=== PATIENT | female | born 1995 | race Caucasian/White ===

== ENCOUNTER 2018-07-03 09:00 | Emergency (ER) | payer MEDICAID ==
[~2018-07-03] VITALS: Ht 157.5 cm; Wt 54.5 kg
[2018-07-03] MEDS ORDERED: LORazepam 2 MG/ML VIAL IVP ONE (09:15)
[2018-07-03] MEDS ORDERED: KETOROLAC TROMETHAMINE 30 MG/ML VIAL IVP ONE (09:15)
[2018-07-03] MEDS ORDERED: ONDANSETRON HCL 4 MG/2 ML VIAL IVP ONE (09:15)
[2018-07-03] MEDS ORDERED: SODIUM CHLORIDE 0.9% 1,000 ML IV ONE ×2 (09:15→13:45)
[2018-07-03 09:26] LABS: BASOPHILS % (AUTO) 0.3 % (0.0-2.0); EOSINOPHILS % (AUTO) 0.1 % (1.0-6.0); HEMATOCRIT 36.3 % (36-46); HEMOGLOBIN 12.7 g/dL (12.0-16.0); LYMPHOCYTES # (AUTO) 1.5 K/uL (1.0-4.8); LYMPHOCYTES % (AUTO) 13.4 % (22.0-44.0); MEAN CORPUSCULAR HEMOGLOBIN 28.5 pg (26.0-34.0); MEAN CORPUSCULAR HGB CONC 34.8 G/dL (31.0-37.0); MEAN CORPUSCULAR VOLUME 82 fL (80-100); MONOCYTES # (AUTO) 0.3 K/uL (0.1-1.0); MONOCYTES % (AUTO) 2.4 % (2.0-9.0); NEUTROPHILS # (AUTO) 9.6 K/uL (1.8-7.7); NEUTROPHILS % (AUTO) 83.8 % (40.0-70.0); PLATELET COUNT (AUTO) 435 K/uL (150-450); RED BLOOD CELL COUNT(AUTO) 4.43 MIL/uL (4.00-5.20); RED CELL DISTRIBUTION WIDTH 17.1 % (11.5-14.5)
[2018-07-03 09:39] LABS: ANION GAP 8 mmol/L (8-16); CARBON DIOXIDE 29 mmol/L (22-29); CHLORIDE 101 mmol/L (98-107); CREATININE 0.71 mg/dL (0.60-1.30); GLOMERULAR FILTR. RATE CALC > 60 mL/min (>60); GLUCOSE,RANDOM 120 mg/dL (70-110); POTASSIUM 3.5 mmol/L (3.5-5.1); SODIUM SERUM 138 mmol/L (136-145); UREA NITROGEN, BLOOD 5 mg/dL (7-18)
[2018-07-03 10:07] LABS: ALANINE AMINOTRANSFERASE 21 U/L (12-78); ALBUMIN 3.7 g/dL (3.4-5.0); ALKALINE PHOSPHATASE 46 U/L (46-116); ASPARTATE AMINOTRANSFERASE 16 U/L (15-37); BILIRUBIN,TOTAL 0.3 mg/dL (0.1-1.0); HCG,QUANTITATIVE 66862 mIU/mL (0-6); LIPASE 99 U/L (73-393); TOTAL PROTEIN, SERUM 7.4 g/dL (6.4-8.2)
[2018-07-03] MEDS ORDERED: ACETAMINOPHEN 325 MG TABLET PO ONE (11:15)
[2018-07-03 13:23] LABS: APPEARANCE,URINE TURBID (CLEAR); BILIRUBIN,URINE NEGATIVE (NEGATIVE); GLUCOSE, URINE (UA) NEGATIVE (NEGATIVE); KETONES,URINE 15 mg/dL (NEGATIVE); LEUKOCYTE ESTERASE ,URINE MODERATE (NEGATIVE); NITRATE,URINE NEGATIVE (NEGATIVE); OCCULT BLOOD,URINE MODERATE (NEGATIVE); PH,URINE 7.5 (5.0-8.0); PROTEIN,URINE SEE CONFIRM (NEGATIVE); UROBILINOGEN,URINE 0.2 mg/dL (<=1.0)
[2018-07-03 13:36] LABS: BACTERIA,URINE Moderate /HPF (None Seen); SQUAMOUS EPITHELIAL CELL,UR Moderate /LPF (None Seen); SULFOSALICYLIC ACID,URINE 2+ (Negative)
[2018-07-03 13:54] LABS: AMPHET/METH SCREEN,URINE NEGATIVE (NEGATIVE); BARBITURATE SCREEN, URINE NEGATIVE (NEGATIVE); BENZODIAZEPINES SCREEN,URINE NEGATIVE (NEGATIVE); CANNABINOID SCREEN,URINE POSITIVE (NEGATIVE); COCAINE SCREEN,URINE NEGATIVE (NEGATIVE); METHADONE SCREEN, URINE NEGATIVE (NEGATIVE); OPIATE SCREEN,URINE NEGATIVE (NEGATIVE)
[2018-07-03 13:55] LABS: PHENCYCLIDINE SCREEN,URINE NEGATIVE (NEGATIVE)
[2018-07-03 15:53] VITALS: BP 110/60
== END 2018-07-03 16:00 | disposition home or self-care (01) ==
LOC: EMS 09:00
DX: O23.41 Unspecified infection of urinary tract in pregnancy, first trimester (principal); O21.9 Vomiting of pregnancy, unspecified; K59.00 Constipation, unspecified; Z3A.11 11 weeks gestation of pregnancy
CPT/HCPCS: 36415; 76801; 76817; 80053; 80307; 81001; 83690; 84702; 85025; 87086; 96361; 96374; 96375; 99285; J1885; J2060; J2405; J7030

== ENCOUNTER 2020-04-28 23:53 | Inpatient (IN) | payer MEDICAID ==
[~2020-04-28] VITALS: Ht 167.6 cm; Wt 58.5 kg
[2020-04-29] MEDS ORDERED: HALOPERIDOL 5 MG TABLET PO PRN (01:30)
[2020-04-29] MEDS ORDERED: ZOLPIDEM TARTRATE 10 MG TABLET PO PRN (01:30)
[2020-04-29 02:24] VITALS: BP 113/87
[2020-04-29] MEDS: CEPHALEXIN MONOHYDRATE 500 MG CAPSULE PO SCH ×2 (09:12→16:49)
[2020-04-29] MEDS ORDERED: DOCUSATE SODIUM 100 MG CAPSULE PO PRN (09:30)
[2020-04-29] MEDS ORDERED: GuaiFENesin/D-METHORPHAN [SUGAR-FREE] 200-20MG/10 ML SYRUP UDCUP PO PRN (09:30)
[2020-04-29] MEDS ORDERED: IBUPROFEN 400 MG TABLET PO PRN (09:30)
[2020-04-29] MEDS ORDERED: ONDANSETRON HCL 4 MG TABLET PO PRN (09:30)
[2020-04-29] MEDS ORDERED: NICOTINE 14 MG/24 HOUR PATCH TD PRN (09:30)
[2020-04-29] MEDS ORDERED: CloNIDine HCL 0.1 MG TABLET PO PRN (09:30)
[2020-04-29] MEDS ORDERED: ACETAMINOPHEN 325 MG TABLET PO PRN (09:30)
[2020-04-29] MEDS ORDERED: PETROLATUM,WHITE 28 GM JELLY TP PRN (09:30)
[2020-04-29] MEDS ORDERED: LOPERAMIDE HCL 2 MG CAPSULE PO PRN (09:30)
[2020-04-29] MEDS ORDERED: ALBUTEROL SULFATE HFA 90 MCG/PUFF 8 GM INHALER IH PRN (09:30)
[2020-04-29] MEDS ORDERED: MAGNESIUM HYDROXIDE SUSPENSION 30 ML UDCUP PO PRN (09:30)
[2020-04-29] MEDS ORDERED: MAG HYDROX/AL HYDROX/SIMETH ES 30 ML SUSPENSION UDCUP PO PRN (09:30)
[2020-04-29] MEDS: SERTRALINE HCL 50 MG TABLET PO SCH (11:15)
[2020-04-29 16:24] VITALS: BP 110/62
[2020-04-29] MEDS: OLANZapine 5 MG TABLET PO SCH (20:23)
[2020-04-30 05:26] VITALS: BP 104/73
[2020-04-30] MEDS: SERTRALINE HCL 50 MG TABLET PO SCH (08:41)
[2020-04-30] MEDS: CEPHALEXIN MONOHYDRATE 500 MG CAPSULE PO SCH ×2 (08:41→16:11)
[2020-04-30 08:43] VITALS: BP 110/76
[2020-04-30] MEDS: LORazepam 2 MG TABLET PO PRN (16:11)
[2020-04-30 16:52] VITALS: BP 103/60
[2020-04-30] MEDS: OLANZapine 5 MG TABLET PO SCH (20:22)
[2020-05-01 04:47] VITALS: BP 110/72
[2020-05-01 08:24] VITALS: BP 116/63
[2020-05-01] MEDS: CEPHALEXIN MONOHYDRATE 500 MG CAPSULE PO SCH ×2 (08:49→16:54)
[2020-05-01] MEDS: SERTRALINE HCL 50 MG TABLET PO SCH (08:49)
[2020-05-01 16:13] VITALS: BP 110/55
[2020-05-01] MEDS: MUPIROCIN CALCIUM 2% 22 GM OINTMENT NASAL SCH (16:53)
[2020-05-01] MEDS: LORazepam 2 MG TABLET PO PRN (17:14)
[2020-05-01] MEDS: OLANZapine 5 MG TABLET PO SCH (20:15)
[2020-05-02 00:36] VITALS: BP 106/68
[2020-05-02 08:14] VITALS: BP 114/66
[2020-05-02] MEDS: CEPHALEXIN MONOHYDRATE 500 MG CAPSULE PO SCH ×2 (09:26→16:32)
[2020-05-02] MEDS: MUPIROCIN CALCIUM 2% 22 GM OINTMENT NASAL SCH ×2 (09:26→16:32)
[2020-05-02] MEDS: SERTRALINE HCL 50 MG TABLET PO SCH (09:26)
[2020-05-02] MEDS: LORazepam 2 MG TABLET PO PRN ×2 (10:17→17:47)
[2020-05-02 17:45] VITALS: BP 126/77
[2020-05-02] MEDS: OLANZapine 5 MG TABLET PO SCH (20:38)
[2020-05-03 00:31] VITALS: BP 122/79
[2020-05-03 08:16] VITALS: BP 106/71
[2020-05-03] MEDS: LORazepam 2 MG TABLET PO PRN (09:21)
[2020-05-03] MEDS: CEPHALEXIN MONOHYDRATE 500 MG CAPSULE PO SCH (09:21)
[2020-05-03] MEDS: SERTRALINE HCL 50 MG TABLET PO SCH (09:21)
[2020-05-03] MEDS: MUPIROCIN CALCIUM 2% 22 GM OINTMENT NASAL SCH (09:21)
[2020-05-03] MEDS ORDERED: SERT50TA12 PO (11:47)
[2020-05-03] MEDS ORDERED: OLAN5TAB27 PO (11:47)
== END 2020-05-03 14:30 | disposition home or self-care (01) | DRG 885 ==
LOC: B3A 04-29 02:08
DX: F25.1 Schizoaffective disorder, depressive type (principal); R45.851 Suicidal ideations; N39.0 Urinary tract infection, site not specified; Z59.0 Homelessness; Z79.899 Other long term (current) drug therapy; Z91.5 Personal history of self-harm; F41.1 Generalized anxiety disorder; F15.10 Other stimulant abuse, uncomplicated; F12.10 Cannabis abuse, uncomplicated; K59.00 Constipation, unspecified
CPT/HCPCS: 87081; Z7610

== ENCOUNTER 2020-06-01 01:41 | Emergency (ER) | payer MEDICAID ==
[~2020-06-01] VITALS: Ht 157.5 cm; Wt 54.5 kg
[~2020-06-01 01:41] MED LIST: OLAN5TAB27 PO; SERT50TA12 PO
[2020-06-01] MEDS ORDERED: DIVA-85 PO (02:12)
[2020-06-01] MEDS ORDERED: QUET25TA PO (02:12)
[2020-06-01] MEDS ORDERED: ZOLP-280 PO (02:12)
[2020-06-01 02:15] LABS: BASOPHILS % (AUTO) 0.8 % (0.0-2.0); EOSINOPHILS % (AUTO) 1.6 % (1.0-6.0); HEMATOCRIT 34.2 % (36-46); HEMOGLOBIN 11.2 g/dL (12.0-16.0); LYMPHOCYTES # (AUTO) 2.9 K/uL (1.0-4.8); LYMPHOCYTES % (AUTO) 39.7 % (22.0-44.0); MEAN CORPUSCULAR HEMOGLOBIN 26.3 pg (26.0-34.0); MEAN CORPUSCULAR HGB CONC 32.8 G/dL (31.0-37.0); MEAN CORPUSCULAR VOLUME 80 fL (80-100); MONOCYTES # (AUTO) 0.5 K/uL (0.1-1.0); MONOCYTES % (AUTO) 7.3 % (2.0-9.0); NEUTROPHILS # (AUTO) 3.6 K/uL (1.8-7.7); NEUTROPHILS % (AUTO) 50.6 % (40.0-70.0); PLATELET COUNT (AUTO) 332 K/uL (150-450); RED BLOOD CELL COUNT(AUTO) 4.27 MIL/uL (4.00-5.20); RED CELL DISTRIBUTION WIDTH 19.4 % (11.5-14.5)
[2020-06-01 02:22] LABS: ANION GAP 6 mmol/L (8-16); CALCIUM, TOTAL 8.9 mg/dL (8.8-10.5); CARBON DIOXIDE 29 mmol/L (22-29); CHLORIDE 103 mmol/L (98-107); CREATININE 0.78 mg/dL (0.60-1.30); GLOMERULAR FILTR. RATE CALC > 60 mL/min (>60); GLUCOSE,RANDOM 96 mg/dL (70-110); SODIUM SERUM 138 mmol/L (136-145); UREA NITROGEN, BLOOD 6 mg/dL (7-18)
[2020-06-01] MEDS ORDERED: LORazepam 2 MG TABLET PO ONE (02:30)
[2020-06-01 02:33] LABS: ALANINE AMINOTRANSFERASE 21 U/L (12-78); ALBUMIN 3.8 g/dL (3.4-5.0); ALKALINE PHOSPHATASE 41 U/L (46-116); ASPARTATE AMINOTRANSFERASE 17 U/L (15-37); BILIRUBIN,TOTAL 0.3 mg/dL (0.1-1.0); HCG,QUANTITATIVE 1 mIU/mL (0-6); TOTAL PROTEIN, SERUM 6.8 g/dL (6.4-8.2)
[2020-06-01] MEDS ORDERED: POTASSIUM CHLORIDE 20 MEQ ER TABLET PO ONE (05:00)
[2020-06-01 09:00] VITALS: BP 108/70
== END 2020-06-01 10:04 | disposition home or self-care (01) ==
LOC: EMS 01:42
DX: F20.9 Schizophrenia, unspecified (principal); F12.90 Cannabis use, unspecified, uncomplicated; F14.90 Cocaine use, unspecified, uncomplicated; Z79.899 Other long term (current) drug therapy
CPT/HCPCS: 36415; 80053; 84702; 85025; 99285; G0480

== ENCOUNTER 2021-07-27 14:33 | Emergency (ER) | payer MEDICAID ==
[~2021-07-27] VITALS: Ht 157.5 cm; Wt 55.0 kg
[~2021-07-27 14:33] MED LIST changes: +DIVA-85 PO; -OLAN5TAB27 PO; +QUET25TA PO; -SERT50TA12 PO; +ZOLP-280 PO
[2021-07-27] MEDS ORDERED: LORA-999 PO (14:43)
[2021-07-27] MEDS ORDERED: LORazepam 1 MG TABLET PO ONE (15:30)
[2021-07-27 15:38] LABS: BASOPHILS % (AUTO) 0.9 % (0.0-2.0); EOSINOPHILS % (AUTO) 1.3 % (1.0-6.0); HEMATOCRIT 38.4 % (36-46); HEMOGLOBIN 12.3 g/dL (12.0-16.0); LYMPHOCYTES # (AUTO) 2.5 K/uL (1.0-4.8); LYMPHOCYTES % (AUTO) 31.9 % (22.0-44.0); MEAN CORPUSCULAR HEMOGLOBIN 26.6 pg (26.0-34.0); MEAN CORPUSCULAR HGB CONC 32.1 G/dL (31.0-37.0); MEAN CORPUSCULAR VOLUME 83 fL (80-100); MONOCYTES # (AUTO) 0.5 K/uL (0.1-1.0); MONOCYTES % (AUTO) 6.1 % (2.0-9.0); NEUTROPHILS # (AUTO) 4.7 K/uL (1.8-7.7); NEUTROPHILS % (AUTO) 59.8 % (40.0-70.0); PLATELET COUNT (AUTO) 417 K/uL (150-450); RED BLOOD CELL COUNT(AUTO) 4.63 MIL/uL (4.00-5.20)
[2021-07-27 15:47] LABS: ANION GAP 4 mmol/L (8-16); CARBON DIOXIDE 34 mmol/L (22-29); CHLORIDE 104 mmol/L (98-107); GLOMERULAR FILTR. RATE CALC > 60 mL/min (>60); GLUCOSE,RANDOM 78 mg/dL (70-110); POTASSIUM 4.5 mmol/L (3.5-5.1); SODIUM SERUM 142 mmol/L (136-145); UREA NITROGEN, BLOOD 12 mg/dL (7-18)
[2021-07-27 15:54] LABS: ALANINE AMINOTRANSFERASE 22 U/L (12-78); ALBUMIN 3.6 g/dL (3.4-5.0); ALKALINE PHOSPHATASE 60 U/L (46-116); ASPARTATE AMINOTRANSFERASE 12 U/L (15-37); BILIRUBIN,TOTAL 0.1 mg/dL (0.1-1.0); TOTAL PROTEIN, SERUM 6.7 g/dL (6.4-8.2)
[2021-07-27 16:28] LABS: COVID AG,FIA SOURCE NASOPHARYNGEAL
[2021-07-27 16:38] LABS: AMPHET/METH SCREEN,URINE NEGATIVE (NEGATIVE); BARBITURATE SCREEN, URINE NEGATIVE (NEGATIVE); BENZODIAZEPINES SCREEN,URINE NEGATIVE (NEGATIVE); CANNABINOID SCREEN,URINE POSITIVE (NEGATIVE); COCAINE SCREEN,URINE NEGATIVE (NEGATIVE); METHADONE SCREEN, URINE NEGATIVE (NEGATIVE); OPIATE SCREEN,URINE NEGATIVE (NEGATIVE)
[2021-07-27 16:45] LABS: PHENCYCLIDINE SCREEN,URINE NEGATIVE (NEGATIVE)
[2021-07-27 16:52] VITALS: BP 108/68
== END 2021-07-27 17:29 | disposition home or self-care (01) ==
LOC: EMS 16:12
DX: F25.9 Schizoaffective disorder, unspecified (principal); Z20.822 Contact with and (suspected) exposure to COVID-19
CPT/HCPCS: 36415; 80053; 80307; 84703; 85025; 87426; 99284; G0480

== ENCOUNTER 2021-07-30 11:27 | Emergency (ER) | payer MEDICAID ==
[~2021-07-30] VITALS: Ht 157.5 cm; Wt 55.0 kg
[~2021-07-30 11:27] MED LIST changes: +LORA-999 PO
[2021-07-30 11:46] VITALS: BP 99/59
[2021-07-30] MEDS ORDERED: SODIUM CHLORIDE 0.9% 1,000 ML IV ONE (12:15)
[2021-07-30 12:29] LABS: BASOPHILS % (AUTO) 0.3 % (0.0-2.0); EOSINOPHILS % (AUTO) 1.4 % (1.0-6.0); HEMATOCRIT 33.8 % (36-46); LYMPHOCYTES # (AUTO) 2.2 K/uL (1.0-4.8); LYMPHOCYTES % (AUTO) 27.6 % (22.0-44.0); MEAN CORPUSCULAR HGB CONC 32.5 G/dL (31.0-37.0); MEAN CORPUSCULAR VOLUME 83 fL (80-100); MONOCYTES # (AUTO) 0.4 K/uL (0.1-1.0); MONOCYTES % (AUTO) 5.3 % (2.0-9.0); NEUTROPHILS # (AUTO) 5.1 K/uL (1.8-7.7); NEUTROPHILS % (AUTO) 65.4 % (40.0-70.0); PLATELET COUNT (AUTO) 336 K/uL (150-450); RED BLOOD CELL COUNT(AUTO) 4.07 MIL/uL (4.00-5.20); RED CELL DISTRIBUTION WIDTH 18.4 % (11.5-14.5)
[2021-07-30 12:40] LABS: ANION GAP 2 mmol/L (8-16); CALCIUM, TOTAL 8.3 mg/dL (8.8-10.5); CARBON DIOXIDE 29 mmol/L (22-29); CHLORIDE 105 mmol/L (98-107); GLOMERULAR FILTR. RATE CALC > 60 mL/min (>60); GLUCOSE,RANDOM 92 mg/dL (70-110); POTASSIUM 4.6 mmol/L (3.5-5.1); SODIUM SERUM 136 mmol/L (136-145); UREA NITROGEN, BLOOD 10 mg/dL (7-18)
[2021-07-30 13:02] LABS: ALANINE AMINOTRANSFERASE 22 U/L (12-78); ALBUMIN 3.1 g/dL (3.4-5.0); ALKALINE PHOSPHATASE 51 U/L (46-116); ASPARTATE AMINOTRANSFERASE 13 U/L (15-37); BILIRUBIN,TOTAL 0.1 mg/dL (0.1-1.0); HCG,QUANTITATIVE 1 mIU/mL (0-6); TOTAL PROTEIN, SERUM 6.1 g/dL (6.4-8.2); VALPROIC ACID 42 mcg/mL (50-100)
== END 2021-07-30 14:18 | disposition home or self-care (01) ==
LOC: EMS 11:31
DX: R55 Syncope and collapse (principal)
CPT/HCPCS: 80053; 80164; 84484; 84702; 85025; 93005; 99284

== ENCOUNTER 2022-01-03 02:39 | Inpatient (IN) | payer MEDICAID ==
[~2022-01-03] VITALS: Ht 154.9 cm; Wt 59.0 kg
[2022-01-03] MEDS ORDERED: ZOLPIDEM TARTRATE 10 MG TABLET PO PRN (08:15)
[2022-01-03] MEDS ORDERED: DiphenhydrAMINE HCL 50 MG/ML VIAL IM ONE (14:00)
[2022-01-03] MEDS ORDERED: LORazepam 2 MG/ML VIAL IM ONE (14:00)
[2022-01-03] MEDS ORDERED: HALOPERIDOL LACTATE 5 MG/ML VIAL IM ONE (14:00)
[2022-01-03] MEDS: DIVALPROEX SODIUM 500 MG DR TABLET PO SCH (20:16)
[2022-01-03] MEDS: LITHIUM CARBONATE 300 MG CAPSULE PO SCH (20:16)
[2022-01-03] MEDS: OLANZapine 7.5 MG TABLET PO SCH (20:16)
[2022-01-04] MEDS: DIVALPROEX SODIUM 500 MG DR TABLET PO SCH ×2 (08:32→20:17)
[2022-01-04] MEDS: LITHIUM CARBONATE 300 MG CAPSULE PO SCH ×2 (08:32→20:17)
[2022-01-04] MEDS ORDERED: MAG HYDROX/AL HYDROX/SIMETH ES 30 ML SUSPENSION UDCUP PO PRN (09:00)
[2022-01-04] MEDS ORDERED: CloNIDine HCL 0.1 MG TABLET PO PRN (09:00)
[2022-01-04] MEDS ORDERED: ALBUTEROL SULFATE HFA 90 MCG/PUFF 8 GM INHALER IH PRN (09:00)
[2022-01-04] MEDS ORDERED: PETROLATUM,WHITE 28 GM JELLY TP PRN (09:00)
[2022-01-04] MEDS ORDERED: LOPERAMIDE HCL 2 MG CAPSULE PO PRN (09:00)
[2022-01-04] MEDS ORDERED: MAGNESIUM HYDROXIDE SUSPENSION 30 ML UDCUP PO PRN (09:00)
[2022-01-04] MEDS ORDERED: OMEPRAZOLE 20 MG CAPSULE PO PRN (09:00)
[2022-01-04] MEDS ORDERED: ACETAMINOPHEN 325 MG TABLET PO PRN (09:00)
[2022-01-04] MEDS ORDERED: BENZOCAINE/MENTHOL LOZENGE PO PRN (09:00)
[2022-01-04] MEDS ORDERED: IBUPROFEN 600 MG TABLET PO PRN (09:00)
[2022-01-04] MEDS ORDERED: BACITRACIN 28 GM OINTMENT TP PRN (09:00)
[2022-01-04] MEDS ORDERED: ONDANSETRON HCL 4 MG TABLET PO PRN (09:00)
[2022-01-04] MEDS ORDERED: DOCUSATE SODIUM 100 MG CAPSULE PO PRN (09:00)
[2022-01-04] MEDS: OLANZapine 7.5 MG TABLET PO SCH (20:17)
[2022-01-05] MEDS: LITHIUM CARBONATE 300 MG CAPSULE PO SCH ×2 (08:49→20:17)
[2022-01-05] MEDS: DIVALPROEX SODIUM 500 MG DR TABLET PO SCH ×2 (08:49→20:17)
[2022-01-05] MEDS: HALOPERIDOL 5 MG TABLET PO PRN (09:29)
[2022-01-05] MEDS: LORazepam 2 MG TABLET PO PRN ×2 (09:29→16:10)
[2022-01-05] MEDS: OLANZapine 7.5 MG TABLET PO SCH (20:17)
[2022-01-06] MEDS: DIVALPROEX SODIUM 500 MG DR TABLET PO SCH ×2 (08:19→21:00)
[2022-01-06] MEDS: LORazepam 2 MG TABLET PO PRN ×2 (08:19→17:30)
[2022-01-06] MEDS: LITHIUM CARBONATE 300 MG CAPSULE PO SCH ×2 (08:20→21:00)
[2022-01-06] MEDS: HALOPERIDOL 5 MG TABLET PO PRN (09:09)
[2022-01-06] MEDS ORDERED: LORazepam 2 MG/ML VIAL IM ONE (12:45)
[2022-01-06] MEDS ORDERED: HALOPERIDOL LACTATE 5 MG/ML VIAL IM ONE (12:45)
[2022-01-06] MEDS ORDERED: LORazepam 2 MG/ML VIAL ONE (12:45)
[2022-01-06] MEDS ORDERED: HALOPERIDOL LACTATE 5 MG/ML VIAL ONE (12:45)
[2022-01-06 17:23] VITALS: BP 109/76
[2022-01-06] MEDS ORDERED: DiphenhydrAMINE HCL 50 MG/ML VIAL ONE (18:10)
[2022-01-06] MEDS ORDERED: DiphenhydrAMINE HCL 50 MG/ML VIAL IM ONE (18:30)
[2022-01-06] MEDS: OLANZapine 7.5 MG TABLET PO SCH (21:00)
[2022-01-07 01:17] VITALS: BP 106/72
[2022-01-07] MEDS: LORazepam 2 MG TABLET PO PRN ×3 (08:38→18:33)
[2022-01-07] MEDS: DIVALPROEX SODIUM 500 MG DR TABLET PO SCH ×2 (08:38→22:42)
[2022-01-07] MEDS: LITHIUM CARBONATE 300 MG CAPSULE PO SCH ×2 (08:39→22:42)
[2022-01-07] MEDS: HALOPERIDOL 5 MG TABLET PO PRN ×2 (10:54→16:29)
[2022-01-07] MEDS ORDERED: OLANZapine 10 MG TABLET PO SCH (21:00)
[2022-01-08] MEDS ORDERED: SODIUM CHLORIDE 0.9% 1,000 ML ONE (06:00)
[2022-01-08] MEDS: LORazepam 2 MG TABLET PO PRN (08:21)
[2022-01-08] MEDS: DIVALPROEX SODIUM 500 MG DR TABLET PO SCH (08:26)
[2022-01-08] MEDS: LITHIUM CARBONATE 300 MG CAPSULE PO SCH (08:26)
[2022-01-08] MEDS: HALOPERIDOL 5 MG TABLET PO PRN (08:44)
[2022-01-08 16:15] VITALS: BP 119/69
[2022-01-08] MEDS ORDERED: DIVA-112 PO (17:49)
[2022-01-08] MEDS ORDERED: LITH300C3 PO (17:50)
[2022-01-08] MEDS ORDERED: OLAN10TA74 PO (17:51)
== END 2022-01-08 18:54 | disposition home or self-care (01) | DRG 750 ==
LOC: B3A 08:45
PROVIDERS: ADMIT Psychiatry & Neurology Psychiatry; ATTEND Psychiatry & Neurology Psychiatry
DX: F25.9 Schizoaffective disorder, unspecified (principal); F12.90 Cannabis use, unspecified, uncomplicated; F15.10 Other stimulant abuse, uncomplicated; F32.A Depression, unspecified; F41.9 Anxiety disorder, unspecified; G47.00 Insomnia, unspecified; K59.00 Constipation, unspecified; F17.200 Nicotine dependence, unspecified, uncomplicated; Z20.822 Contact with and (suspected) exposure to COVID-19; Z71.6 Tobacco abuse counseling
CPT/HCPCS: J1200; J1630; J2060; J7030

== ENCOUNTER 2023-11-08 10:15 | Inpatient (IN) | payer MEDICAID ==
[~2023-11-08] VITALS: Ht 157.5 cm; Wt 66.7 kg
[~2023-11-08 10:15] MED LIST changes: +DIVA-112 PO; -DIVA-85 PO; +LITH300C3 PO; -LORA-999 PO; +OLAN10TA74 PO; -QUET25TA PO; -ZOLP-280 PO
[2023-11-09] MEDS ORDERED: CIPR250T6 PO (11:48)
[2023-11-09] MEDS ORDERED: PANT-31 PO (11:49)
[2023-11-09] MEDS ORDERED: QUET100T PO (11:50)
[2023-11-09] MEDS ORDERED: ACET-2247 PO (11:52)
[2023-11-09 14:10] VITALS: BP 128/100; PULSE 100; RESP 20; TEMP 97.6; O2SAT 100
[2023-11-09] MEDS: HALOPERIDOL 5 MG TABLET PO PRN (14:46)
[2023-11-09] MEDS: LORazepam 2 MG TABLET PO PRN (14:46)
[2023-11-09] MEDS ORDERED: ALBUTEROL SULFATE HFA 90 MCG/PUFF 8 GM INHALER IH PRN (16:30)
[2023-11-09] MEDS ORDERED: BACITRACIN 28 GM OINTMENT TP PRN (16:30)
[2023-11-09] MEDS ORDERED: ACETAMINOPHEN 325 MG TABLET PO PRN (16:30)
[2023-11-09] MEDS ORDERED: OMEPRAZOLE 20 MG CAPSULE PO PRN (16:30)
[2023-11-09] MEDS ORDERED: LOPERAMIDE HCL 2 MG CAPSULE PO PRN (16:30)
[2023-11-09] MEDS ORDERED: IBUPROFEN 600 MG TABLET PO PRN (16:30)
[2023-11-09] MEDS ORDERED: BENZOCAINE/MENTHOL LOZENGE PO PRN (16:30)
[2023-11-09] MEDS ORDERED: MAGNESIUM HYDROXIDE SUSPENSION 30 ML UDCUP PO PRN (16:30)
[2023-11-09] MEDS ORDERED: CloNIDine HCL 0.1 MG TABLET PO PRN (16:30)
[2023-11-09] MEDS ORDERED: MAG HYDROX/ALUMINUM HYD/SIMETH ES 30 ML SUSPENSION UDCUP PO PRN (16:30)
[2023-11-09] MEDS ORDERED: PETROLATUM,WHITE 28 GM JELLY TP PRN (16:30)
[2023-11-09] MEDS ORDERED: DOCUSATE SODIUM 100 MG CAPSULE PO PRN (16:30)
[2023-11-09] MEDS: ONDANSETRON HCL 4 MG TABLET PO PRN (17:05)
[2023-11-09] MEDS: ZOLPIDEM TARTRATE 10 MG TABLET PO PRN (21:26)
[2023-11-09 22:25] VITALS: RESP 18
[2023-11-10 08:18] VITALS: RESP 18
[2023-11-10] MEDS: CIPROFLOXACIN HCL 250 MG TABLET PO SCH (09:00)
[2023-11-10 21:40] VITALS: RESP 18
[2023-11-11 08:29] VITALS: RESP 16
[2023-11-11] MEDS: QUEtiapine FUMARATE 100 MG TABLET PO SCH (13:29)
[2023-11-11] MEDS: DIVALPROEX SODIUM 500 MG DR TABLET PO SCH (17:23)
[2023-11-11] MEDS: LITHIUM CARBONATE 300 MG CAPSULE PO SCH (17:23)
[2023-11-11 20:55] VITALS: RESP 17
[2023-11-12 08:28] VITALS: RESP 16
== END 2023-11-12 14:45 | disposition home or self-care (01) | DRG 750 ==
LOC: B3A 11-09 14:08
PROVIDERS: ADMIT Psychiatry & Neurology Psychiatry; ATTEND Psychiatry & Neurology Psychiatry
DX: F25.0 Schizoaffective disorder, bipolar type (principal); F22 Delusional disorders; F41.9 Anxiety disorder, unspecified; F15.10 Other stimulant abuse, uncomplicated; F32.A Depression, unspecified; K59.00 Constipation, unspecified; F29 Unspecified psychosis not due to a substance or known physiological condition
CPT/HCPCS: 87081; Q0162

== ENCOUNTER 2025-06-01 15:10 | Emergency (ER) | payer MEDICAID ==
[~2025-06-01] VITALS: Ht 158.8 cm; Wt 50.0 kg
[~2025-06-01 15:10] MED LIST changes: -OLAN10TA74 PO; +QUET100T PO
[2025-06-01 15:12] VITALS: BP 134/77; PULSE 121; RESP 18; TEMP 99.1; O2SAT 98
[2025-06-01] MEDS ORDERED: BUPR1TAB46 SL (15:16)
== END 2025-06-01 16:30 | disposition left against medical advice (07) ==
LOC: EMS 15:10
DX: Z76.0 Encounter for issue of repeat prescription (principal); Z53.21 Procedure and treatment not carried out due to patient leaving prior to being seen by health care provider

== ENCOUNTER 2025-06-02 16:54 | Emergency (ER) | payer MEDICAID ==
[~2025-06-02] VITALS: Ht 160 cm; Wt 52.3 kg
[~2025-06-02 16:54] MED LIST changes: +BUPR1TAB46 SL
[2025-06-02 16:56] VITALS: BP 123/77; PULSE 92; RESP 18; TEMP 98.2; O2SAT 97
[2025-06-02] MEDS: BUPRENORPHINE HCL/NALOXONE HCL 8-2 MG SUBLINGUAL TABLET SL ONE (17:17)
== END 2025-06-02 17:56 | disposition home or self-care (01) ==
LOC: EMS 16:54
DX: R10.9 Unspecified abdominal pain (principal); R68.83 Chills (without fever); F12.90 Cannabis use, unspecified, uncomplicated; F32.A Depression, unspecified; F41.9 Anxiety disorder, unspecified; F17.210 Nicotine dependence, cigarettes, uncomplicated; F14.90 Cocaine use, unspecified, uncomplicated; F15.90 Other stimulant use, unspecified, uncomplicated; F11.90 Opioid use, unspecified, uncomplicated; Z98.890 Other specified postprocedural states; Z76.0 Encounter for issue of repeat prescription; Z79.899 Other long term (current) drug therapy
CPT/HCPCS: 99283